=== PATIENT | male | born 1955 | race Caucasian/White ===

== ENCOUNTER 2020-02-29 17:52 | Inpatient (IN) | payer OTHER ==
[~2020-02-29] VITALS: Ht 175.3 cm; Wt 124.2 kg
[2020-02-29] MEDS ORDERED: dilTIAZem 25 MG/5 ML VIAL IV ONE (18:30)
[2020-02-29 18:48] LABS: Basophils # (auto) 0 10 ^3/uL (0-0.2); Basophils % (auto) 0.5 % (0.0-2.0); Eosinophils # (auto) 0 10 ^3/uL (0-0.8); Hematocrit 49.4 % (41.0-53.0); Hemoglobin 16.9 g/dL (13.5-17.5); Lymphocytes # (auto) 0.6 10 ^3/uL (0.4-5.4); Lymphocytes % (auto) 10.8 % (10.0-50.0); Mean Corpuscular Hemoglobin 31.2 pg (28.0-32.0); Mean Corpuscular Hgb Conc. 34.2 g/dL (32.0-36.0); Mean Corpuscular Volume 91.2 fL (80.0-100.0); Monocytes # (auto) 0.2 10 ^3/uL (0-1.3); Monocytes % (auto) 3.2 % (0.0-12.0); Neutrophils # (auto) 5.1 10 ^3/uL (1.6-8.6); Neutrophils % (auto) 85.5 % (37.0-80.0); Nucleated Red Blood Cells % 0.1 %; Platelet Count (auto) 139 10^3/uL (140-450); Red Blood Cells 5.42 10^6/uL (4.5-5.90); Red Cell Distribution Width 14.1 % (11.8-14.3)
[2020-02-29 19:09] LABS: BUN/Creatinine Ratio 22.3; Calcium 7.7 mg/dL (8.5-10.1); Magnesium 2.1 mg/dL (1.6-2.6); Potassium 3.1 mmol/L (3.5-5.1)
[2020-02-29 19:14] LABS: Bilirubin, Total 1.2 mg/dL (0.2-1.0); Total Protein 6.3 g/dL (6.4-8.2)
[2020-02-29] MEDS ORDERED: IOHEXOL 350 MG/ML 100ML IJ ONE (19:34)
[2020-02-29] MEDS ORDERED: POTASSIUM CHL 20MEQ/100ML 100 ML IV ONE (19:45)
[2020-02-29 20:15] VITALS: BP 109/57
[2020-02-29] MEDS ORDERED: ASCORBIC ACID 500 MG TAB PO ONE (20:30)
[2020-02-29] MEDS ORDERED: ZINC SULFATE 220mg CAP or TAB PO ONE (20:30)
[2020-02-29] MEDS ORDERED: AZITHROMYCIN 500MG/ 250ML 250 ML IV ONE (20:30)
[2020-02-29] MEDS ORDERED: SODIUM CHLORIDE 0.9% 500 ML IV ONE (21:15)
[2020-02-29 21:21] LABS: CRP High Sensitivity 9.27 mg/dL (< 0.3)
[2020-02-29] MEDS ORDERED: NITROGLYCERIN 0.4 MG SL TAB SL PRN (21:30)
[2020-02-29] MEDS ORDERED: FUROSEMIDE 40 MG/4 ML VIAL IV ONE (21:30)
[2020-02-29] MEDS ORDERED: MORPHINE SULF INJ 2 MG/ML SYRINGE 1ML IV PRN (21:30)
[2020-02-29] MEDS ORDERED: ENOXAPARIN SOD 40 MG/0.4 ML SYRINGE SC SCH (21:43)
[2020-02-29] MEDS ORDERED: DEXTROSE (50%) 50ML SYRG IV PRN (22:45)
[2020-02-29 22:50] VITALS: BP 99/44
[2020-02-29] MEDS: cefTRIAXone 1GM/50ML D5W 50 ML IV SCH (23:34)
[2020-03-01] VITALS (18 sets, daily range): BP systolic 88–141; BP diastolic 54–89
[2020-03-01] MEDS: InsuLIN REG 1unit/0.01ml Soln (100units/ml) SC SCH ×4 (05:57→22:00)
[2020-03-01] MEDS: ACCU-CHEK COMFORT CURVE STRIP VI SCH ×4 (05:57→22:28)
[2020-03-01 07:00] LABS: Potassium 3.2 mmol/L (3.5-5.1)
[2020-03-01 07:09] LABS: Albumin 2.1 g/dL (3.4-5.0); Calcium 8.1 mg/dL (8.5-10.1); Total Protein 6.4 g/dL (6.4-8.2)
[2020-03-01 07:18] LABS: Basophils # (auto) 0 10 ^3/uL (0-0.2); Basophils % (auto) 0.6 % (0.0-2.0); Eosinophils # (auto) 0 10 ^3/uL (0-0.8); Hematocrit 48.7 % (41.0-53.0); Hemoglobin 16.8 g/dL (13.5-17.5); Lymphocytes # (auto) 0.8 10 ^3/uL (0.4-5.4); Lymphocytes % (auto) 14.9 % (10.0-50.0); Mean Corpuscular Hemoglobin 31.8 pg (28.0-32.0); Mean Corpuscular Hgb Conc. 34.5 g/dL (32.0-36.0); Mean Corpuscular Volume 92.1 fL (80.0-100.0); Monocytes # (auto) 0.2 10 ^3/uL (0-1.3); Monocytes % (auto) 3.3 % (0.0-12.0); Neutrophils # (auto) 4.4 10 ^3/uL (1.6-8.6); Neutrophils % (auto) 81.2 % (37.0-80.0); Nucleated Red Blood Cells % 0.2 %; Platelet Count (auto) 162 10^3/uL (140-450); Red Blood Cells 5.29 10^6/uL (4.5-5.90); Red Cell Distribution Width 13.9 % (11.8-14.3); White Blood Cell 5.4 10^3/uL (4.4-10.8)
[2020-03-01] MEDS: SODIUM CHLORIDE 0.9% 1,000 ML IV SCH (08:24)
[2020-03-01] MEDS ORDERED: POTASSIUM CHL 20MEQ/100ML 100 ML IV ONE (10:15)
[2020-03-01] MEDS: DexAMETHasone SOD PHOS 4 MG/1ML SDV INJ IV SCH (12:04)
[2020-03-01] MEDS: cefTRIAXone 1GM/50ML D5W 50 ML IV SCH (12:05)
[2020-03-01] MEDS: AZITHROMYCIN 250 MG TAB PO SCH (12:05)
[2020-03-01] MEDS: ENOXAPARIN SOD 100 MG/1 ML SYRINGE SC SCH ×2 (12:06→22:28)
[2020-03-01] MEDS ORDERED: IPRATROPIUM BROM 0.5 MG/2.5ML INH SOL NEB SCH (14:00)
[2020-03-01] MEDS ORDERED: ALBUTEROL IN SCH (14:00)
[2020-03-01] MEDS ORDERED: ALBUTEROL SULF HFA 90MCG INH 200DOSE IN SCH (14:00)
[2020-03-01] MEDS ORDERED: IPRATROPIUM IN SCH (14:00)
[2020-03-01] MEDS: IPRATROPIUM-ALBUTEROL 20mCg/100mCg INHALER IN SCH ×2 (14:57→22:20)
[2020-03-01] MEDS ORDERED: DIGOXIN (250MCG/ML) 2 ML AMPULE IV ONE (16:00)
[2020-03-01 16:48] LABS: CRP High Sensitivity 10.7 mg/dL (< 0.3)
[2020-03-01 18:24] LABS: Calcium 8.4 mg/dL (8.5-10.1); Potassium 3.5 mmol/L (3.5-5.1)
[2020-03-01 18:29] LABS: BUN/Creatinine Ratio 34.6; Total Protein 6.6 g/dL (6.4-8.2)
--- NOTE | 2020-03-01 18:40 | NUR ---
Respiratory note: PT WAS TRANSFERRED FROM ER TO ICU BED 103. IMMEDIATELY PLACED PT ON HFNC UNIT AT 40LPM AND 60% FIO2 POX READING 90-93%, PT LEFT ON THESE TOLERATED SETTINGS. UNIT CONNECTED TO RED OUTLET O2 AND, MEDICAL AIR WALL SOURCE. KANG WATER ON HUSAM HEATER PLACED, SECURED AND ALL TUBING IS UNCLAMPED. AMBU BAG AND MASK AT BEDSIDE. PT TOLERATING WELL. BS ARE DIMINISHED T/O. PT IS ALERT AND ORIENTATED. WILL STAY IN ROOM TO OBTAIN ABG.
[2020-03-01 18:50] LABS: Albumin 4.1 g/dL (3.4-5.0)
--- NOTE | 2020-03-01 19:09 | NUR ---
Respiratory note: PAGED DR. Chau FRIAS REGARDING ABG RESULTS.
--- NOTE | 2020-03-01 19:37 | NUR ---
RECEIVED CALL BACK FROM DR Smiley OSORIO. UPDATED ON ABG RESULTS. PT IS TO BE LEFT ON HFNC TOLERATED NO NEW ORDERS GIVEN AT THIS TIME.
--- NOTE | 2020-03-01 20:00 | NUR ---
OPEN ASSUMED CARE OF MALE PT A&O X 4. PT ON HI FLOW O2 CANNULA 60% FIO2 40 L. PT AFIB RATE 92 ON VESSEL ORDINARY SEAMAN. 18 G IV TO L. HAND WITH NS INFUSING AT 50 ML/HR SITE B&P. PT DENIES PAIN. SOB WITH EXERTION. HOB ELEVATED 45 DEGREES FOR PT COMFORT. CALL ABEL IN REACH. PORTABLE PHONE AT BEDSIDE. BED IN LOWEST LOCKED POSITION. SIDE RAILS UP X 2. PT EDUCATED TO KEEP OXYGEN ON. EDUCATED TO CALL FOR ASSISTANCE PRIOR TO ATTEMPTING TO AMBULATE. PT VERBALIZES UNDERSTANDING.
--- NOTE | 2020-03-01 20:15 | NUR ---
SIGNIFICANT OTHER CALL WITH PT PERMISSION PT'S GIRLFRIEND UPDATED ON PT CONDITION. PASSWORD FOR PHONE ESTABLISHED.
[2020-03-02] VITALS (23 sets, daily range): BP systolic 101–147; BP diastolic 55–91
--- NOTE | 2020-03-02 02:41 | NUR ---
Respiratory note: AT BEDSIDE FOR ROUTINE CHECK. SETTINGS HAD TO BE INCREASED ON HFNC, DUE PTS POX MAINTAINING IN 80S. PTS IS NOW ON 45LPM WITH 70% FIO2. WILL CONTINUE TO MONITOR. YAEL BARNARD COMMUNICATED ON SETTINGS.
[2020-03-02] MEDS: SODIUM CHLORIDE 0.9% 1,000 ML IV SCH (03:30)
[2020-03-02 04:54] LABS: Basophils # (auto) 0 10 ^3/uL (0-0.2); Basophils % (auto) 1.1 % (0.0-2.0); Eosinophils # (auto) 0 10 ^3/uL (0-0.8); Hematocrit 49.4 % (41.0-53.0); Hemoglobin 16.3 g/dL (13.5-17.5); Lymphocytes # (auto) 0.4 10 ^3/uL (0.4-5.4); Lymphocytes % (auto) 9.7 % (10.0-50.0); Mean Corpuscular Hemoglobin 30.7 pg (28.0-32.0); Mean Corpuscular Hgb Conc. 33.1 g/dL (32.0-36.0); Mean Corpuscular Volume 92.6 fL (80.0-100.0); Monocytes # (auto) 0.3 10 ^3/uL (0-1.3); Monocytes % (auto) 6.5 % (0.0-12.0); Neutrophils # (auto) 3.3 10 ^3/uL (1.6-8.6); Neutrophils % (auto) 82.7 % (37.0-80.0); Nucleated Red Blood Cells % 0.1 %; Platelet Count (auto) 199 10^3/uL (140-450); Red Blood Cells 5.33 10^6/uL (4.5-5.90); Red Cell Distribution Width 14.3 % (11.8-14.3)
[2020-03-02 04:56] LABS: Potassium 3.6 mmol/L (3.5-5.1)
[2020-03-02 05:03] LABS: Albumin 1.9 g/dL (3.4-5.0); BUN/Creatinine Ratio 35.2; Bilirubin, Total 0.8 mg/dL (0.2-1.0); Calcium 8.3 mg/dL (8.5-10.1); Total Protein 6.3 g/dL (6.4-8.2)
[2020-03-02] MEDS ORDERED: METO25TA5 PO (06:10)
[2020-03-02] MEDS ORDERED: DIGO0.25 PO (06:10)
[2020-03-02] MEDS: ACCU-CHEK COMFORT CURVE STRIP VI SCH ×4 (06:19→22:20)
[2020-03-02] MEDS: InsuLIN REG 1unit/0.01ml Soln (100units/ml) SC SCH ×4 (06:19→22:22)
[2020-03-02] MEDS: IPRATROPIUM-ALBUTEROL 20mCg/100mCg INHALER IN SCH ×3 (06:50→23:22)
--- NOTE | 2020-03-02 07:50 | NUR ---
DR AJ AT BEDSIDE RECEIVED NEW ORDERS
--- NOTE | 2020-03-02 09:00 | NUR ---
SELF PRONING PT EDUCATED ON THE BENEFITS OF SELF PRONING. PT VERBALIZED UNDERSTANDING. UNABLE TO PERFORM AT THIS TIME. RN WILL CONTINUE TO ENCOURAGE.
--- NOTE | 2020-03-02 09:30 | NUR ---
DR FRIAS AT BEDSIDE DISCUSSED PT STATUS, NEW ORDERS RECEIVED
[2020-03-02] MEDS: cefTRIAXone 1GM/50ML D5W 50 ML IV SCH (10:00)
--- NOTE | 2020-03-02 11:30 | NUR ---
DR EMMANUEL AT BEDSIDE
[2020-03-02] MEDS ORDERED: ACETAMINOPHEN 650 mg PER 20 mL UD PO ONE (12:00)
[2020-03-02] MEDS: AZITHROMYCIN 250 MG TAB PO SCH (12:00)
[2020-03-02] MEDS ORDERED: methylPREDNISolone SOD SUCC 40 MG/ML VL IV ONE (12:00)
[2020-03-02] MEDS: DexAMETHasone SOD PHOS 4 MG/1ML SDV INJ IV SCH (12:00)
[2020-03-02] MEDS: DIGOXIN 0.125 MG TAB PO SCH (12:01)
[2020-03-02] MEDS: METOPROLOL TARTRATE 25 MG TAB PO SCH ×2 (12:01→22:19)
[2020-03-02] MEDS: ENOXAPARIN SOD 100 MG/1 ML SYRINGE SC SCH ×2 (12:01→22:20)
[2020-03-02] MEDS: diphenhdrAMINE HCL 50 MG/1 ML VL IV SCH (12:17)
[2020-03-02] MEDS ORDERED: TOCILIZUMAB 400 MG in SODIUM CHL 0.9% 80 ML IV ONE (12:30)
--- NOTE | 2020-03-02 16:35 | NUR ---
REPORT GIVEN TO PATRICE FROM [facility] ALL QUESTIONS AND CONCERNS ANSWERED. AWAITING RT, EVS, AND SECURITY FOR TRANSPORT.
--- NOTE | 2020-03-02 16:40 | NUR ---
BRAD [facility] PLASMA CONSENT SIGNED AND PLACED IN CHART. AWAITING TYPE AND CROSS RESULTS. PATRICE CONLEY INFORMED TO CALL ADMIN FOR SPECIALTY ORDERING OF PLASMA.
--- NOTE | 2020-03-02 16:50 | NUR ---
TRANSPORTED PT TO NEW BED ASSIGNMENT [facility] RECEIVING RN AT BEDSIDE UPON ARRIVAL, PT CONNECTED TO BEDSIDE MONITORS. RT CONNECTED TO HIGH FLOW O2. TRANSFERRED WITH ALL BELONGINGS, VS STABLE.
--- NOTE | 2020-03-02 17:00 | NUR ---
TRANSFER Patient transferred from ICU 103 to [facility] via bed. Patient received and placed in Novel Respiratory isolation. Vitals signs on transfer as follows: HR 76 Afib, BP 131/85, RR 27, O2sats 93% on High Flow 45L 70%, and temp 98.4 axillary. Patient with PIV to left hand #20 and is intact and flushes well. Patient to have IVF of NS running at 50ml/hr. Patient is A&Ox4, denies pain and has no s/s of distress noted. Bed in lowest position, rails x2 up and call light/phone within reach. Updated patient on current plan of care. Patient to receive convalescent plasma this evening once Type and Screen returns. Will continue to monitor.
--- NOTE | 2020-03-02 19:01 | NUR ---
CLOSING SHIFT NOTE: Patient sitting up in the bed finishing dinner. Patient remains on isolation for COVID-19. Patient still on high flow oxygen at 45L 70% and O2 sats 90%. Patient to receive convalescent plasma tonight, consent signed in chart. Plasma still needs to be released by house shift coordinator, will endorse to oncoming RN. Patient able to get out of bed to BSC with minimal assist and urinal at bedside. Report to be given to NOC RNFelecia.
--- NOTE | 2020-03-02 20:00 | NUR ---
OPENING NOTE REPORT RECEIVED FROM DAYSHIFT RN. THIS PATIENT IS A POSITIVE COVID PATIENT, ON NOVEL RESPIRATORY ISOLATION. PATIENT IS A/OX4 ON CONTINUOUS MONITORS, HEART RATE IN AFIB IN 70-80'S, SPO2 BETWEEN 88-91% ON HIGH FLOW NASAL CANNULA AT 45L, FIO2 70%. PHYSICAL ASSESSMENT DONE. PATIENT ABLE TO MOVE ALL EXTREMITIES AND REPOSITION SELF IN BED WITHOUT DIFFICULTY. POC DISCUSSED, ALL QUESTIONS ANSWERED. WILL MONITOR Q1H PRN THROUGHOUT SHIFT, CALL LIGHT WITHIN REACH.
--- NOTE | 2020-03-02 20:55 | NUR ---
CONVALESCENT PLASMA CALLED AND SPOKE WITH DR.SIDDIQUI RAFAELA FIERRO ON LABS, PATIENT HISTORY AND REQUESTING PROVIDER. ORDER APPROVED. INSTRUCTED THIS RN TO NOTIFY CLOTH COVERER TO PLACE ORDER FOR 1 UNIT CONVALESCENT PLASMA AND TO INITIATE PROCESS.
--- NOTE | 2020-03-02 21:04 | NUR ---
TACTICAL AIR CONTROL PARTY MANAGER SPOKE WITH TACTICAL AIR CONTROL PARTY MANAGER JENIFER. NOTIFIED HIM OF 'S APPROVAL FOR 1 UNIT CONVALESCENT PLASMA. [place] SUP TO INITIATE PROCESS
[2020-03-03] VITALS (13 sets, daily range): BP systolic 112–139; BP diastolic 61–78
[2020-03-03] MEDS: SODIUM CHLORIDE 0.9% 1,000 ML IV SCH (00:07)
[2020-03-03] MEDS: diphenhdrAMINE HCL 50 MG/1 ML VL IV SCH ×3 (00:22→12:26)
[2020-03-03 04:18] LABS: CRP High Sensitivity 3.41 mg/dL (< 0.3)
--- NOTE | 2020-03-03 06:10 | NUR ---
PRE MEDICATIONS FOR ACTEMRA GIVEN ORDERED BY
[2020-03-03] MEDS: ACCU-CHEK COMFORT CURVE STRIP VI SCH ×4 (06:20→22:23)
[2020-03-03] MEDS: InsuLIN REG 1unit/0.01ml Soln (100units/ml) SC SCH ×4 (06:20→22:00)
[2020-03-03] MEDS ORDERED: methylPREDNISolone SOD SUCC 40 MG/ML VL IV ONE (06:30)
[2020-03-03] MEDS: IPRATROPIUM-ALBUTEROL 20mCg/100mCg INHALER IN SCH ×3 (06:30→22:29)
[2020-03-03] MEDS ORDERED: diphenhdrAMINE HCL 50 MG/1 ML VL IV ONE (06:30)
[2020-03-03] MEDS ORDERED: ACETAMINOPHEN 650 mg PER 20 mL UD PO ONE (06:30)
[2020-03-03] MEDS ORDERED: TOCILIZUMAB 400 MG in SODIUM CHL 0.9% 80 ML IV ONE (07:00)
--- NOTE | 2020-03-03 07:35 | NUR ---
REPORT REPORT RECEIVED FROM DEVIN CONLEY, CARE ASSUMED. PT RESTING IN BED, NO DISTRESS NOTED AT THIS TIME. VITALS SIGNS STABLE. CALL LIGHT WITHIN REACH.
--- NOTE | 2020-03-03 07:44 | NUR ---
CLOSING PATIENT SITTING UP IN BED, RESTING WITH EYES CLOSED. PATIENT ON HIGH FLOW NASAL CANNULA 45L, FIO2 70%, WITH SPO2 96%. PER PUBLISHING EDITOR JENIFER, WE ARE PENDING TO HEAR BACK FROM [place] REGARDING CONVALESCENT PLASMA. ENDORSED CARE TO AM SHIFT YAEL TELLEZ.
--- NOTE | 2020-03-03 08:30 | NUR ---
INITIAL CONTACT PT OBSERVED RESTING IN BED. PT IS AWAKE, ALERT, AND ORIENTED. PT DENIES PAIN OR DISTRESS AT THIS TIME. AFEBRILE. PT ABLE TO REPOSITION SELF IN BED. PULSES PALPABLE BILATERALLY. ATRIAL FIBRILLATION ON BEDSIDE MONITOR, BLOOD PRESSURE STABLE. LUNGS DIMINISHED ANTERIORLY. PT ON HIGH FLOW, OXYGEN SATURATION 93%, DENIES SHORTNESS OF BREATH AT THIS TIME. SEE SKIN/WOUND ASSESSMENT. PT VOIDS IN URINAL. ALL PERSONAL BELONGINGS WITHIN REACH, BED LOCKED IN LOWEST POSITION, AND CALL LIGHT WITHIN REACH. PT INSTRUCTED TO CALL FOR ASSISTANCE, PT VERBALIZED UNDERSTANDING. WILL CONTINUE TO MONITOR.
[2020-03-03] MEDS: ENOXAPARIN SOD 100 MG/1 ML SYRINGE SC SCH ×2 (09:30→22:22)
[2020-03-03] MEDS: AZITHROMYCIN 250 MG TAB PO SCH (09:30)
[2020-03-03] MEDS: DIGOXIN 0.125 MG TAB PO SCH (09:30)
[2020-03-03] MEDS: cefTRIAXone 1GM/50ML D5W 50 ML IV SCH (09:30)
[2020-03-03] MEDS: METOPROLOL TARTRATE 25 MG TAB PO SCH ×2 (09:31→22:23)
--- NOTE | 2020-03-03 11:21 | NUR ---
MD VISIT AT BEDSIDE ASSESSING PATIENT AND SPEAKING WITH HIM REGARDING PLAN OF CARE.
[2020-03-03] MEDS ORDERED: FUROSEMIDE 40 MG/4 ML VIAL IV ONE (11:30)
--- NOTE | 2020-03-03 12:00 | NUR ---
FAMILY PT SISTER CALLED FOR UPDATE. PROVIDED CONTACT INFORMATION. CALL TRANSFERRED TO ROOM.
[2020-03-03] MEDS: ALBUMIN 25% 100 ML IV SCH (12:20)
[2020-03-03] MEDS: DexAMETHasone SOD PHOS 4 MG/1ML SDV INJ IV SCH (12:20)
--- NOTE | 2020-03-03 18:15 | NUR ---
BLOOD PRODUCTS ONE UNIT OF DONOR PLASMA ADMINISTRATION BEGUN. CONSENTS IN CHART. VITALS OBTAINED. NO REACTIONS NOTED AT THIS TIME.
[2020-03-04] VITALS (12 sets, daily range): BP systolic 117–144; BP diastolic 46–117
[2020-03-04] MEDS: diphenhdrAMINE HCL 50 MG/1 ML VL IV SCH
[2020-03-04 04:38] LABS: Basophils # (auto) 0 10 ^3/uL (0-0.2); Basophils % (auto) 0.2 % (0.0-2.0); Eosinophils # (auto) 0 10 ^3/uL (0-0.8); Eosinophils % (auto) 0.1 % (0.0-7.0); Hematocrit 46.8 % (41.0-53.0); Hemoglobin 15.4 g/dL (13.5-17.5); Lymphocytes # (auto) 0.4 10 ^3/uL (0.4-5.4); Mean Corpuscular Hgb Conc. 32.9 g/dL (32.0-36.0); Monocytes # (auto) 0.3 10 ^3/uL (0-1.3); Monocytes % (auto) 6.7 % (0.0-12.0); Neutrophils # (auto) 4.1 10 ^3/uL (1.6-8.6); Platelet Count (auto) 276 10^3/uL (140-450); Red Blood Cells 4.98 10^6/uL (4.5-5.90); Red Cell Distribution Width 13.9 % (11.8-14.3); White Blood Cell 4.9 10^3/uL (4.4-10.8)
[2020-03-04 04:59] LABS: Potassium 3.5 mmol/L (3.5-5.1)
[2020-03-04 05:08] LABS: Albumin 2.3 g/dL (3.4-5.0); BUN/Creatinine Ratio 36.7; Bilirubin, Total 0.7 mg/dL (0.2-1.0); Calcium 8.2 mg/dL (8.5-10.1)
[2020-03-04] MEDS: IPRATROPIUM-ALBUTEROL 20mCg/100mCg INHALER IN SCH ×3 (06:15→22:06)
[2020-03-04] MEDS: InsuLIN REG 1unit/0.01ml Soln (100units/ml) SC SCH ×4 (07:00→22:00)
[2020-03-04] MEDS: ACCU-CHEK COMFORT CURVE STRIP VI SCH ×4 (07:00→22:00)
[2020-03-04] MEDS: cefTRIAXone 1GM/50ML D5W 50 ML IV SCH (08:25)
[2020-03-04] MEDS: DIGOXIN 0.125 MG TAB PO SCH (10:00)
[2020-03-04] MEDS: ALBUMIN 25% 100 ML IV SCH (10:00)
[2020-03-04] MEDS: DexAMETHasone SOD PHOS 4 MG/1ML SDV INJ IV SCH (11:32)
[2020-03-04] MEDS: AZITHROMYCIN 250 MG TAB PO SCH (11:33)
[2020-03-04] MEDS: METOPROLOL TARTRATE 25 MG TAB PO SCH ×2 (11:33→22:00)
[2020-03-04] MEDS: ENOXAPARIN SOD 100 MG/1 ML SYRINGE SC SCH ×2 (11:34→22:59)
--- NOTE | 2020-03-04 15:01 | NUR ---
Nutrition Assessment Notes Please refer to link for full assessment notes. Est Energy needs: 3276-1643 kcals (17-20 kcal/kgBW) Est Protein needs: 103-113 gms/day (1.0-1.1 gm/kgBW) Will continue to monitor and reassess prn. Addendum: 03/04/20 at [address] Amended: Links added.
[2020-03-04] MEDS ORDERED: BUMETANIDE 2.5mg/10ml (0.25 mg/ml) INJ IV SCH (18:00)
[2020-03-04] MEDS: BUMETANIDE 2.5mg/10ml (0.25 mg/ml) INJ IV SCH (22:59)
[2020-03-05] VITALS (10 sets, daily range): BP systolic 98–114; BP diastolic 75–82
[2020-03-05] MEDS: InsuLIN REG 1unit/0.01ml Soln (100units/ml) SC SCH ×4 (07:00→22:00)
[2020-03-05] MEDS: IPRATROPIUM-ALBUTEROL 20mCg/100mCg INHALER IN SCH ×3 (07:00→22:00)
[2020-03-05] MEDS: ACCU-CHEK COMFORT CURVE STRIP VI SCH ×4 (07:00→22:00)
[2020-03-05] MEDS: METOPROLOL TARTRATE 25 MG TAB PO SCH ×2 (08:56→22:00)
[2020-03-05] MEDS: DIGOXIN 0.125 MG TAB PO SCH (09:29)
[2020-03-05] MEDS: DexAMETHasone SOD PHOS 4 MG/1ML SDV INJ IV SCH (09:29)
[2020-03-05] MEDS: cefTRIAXone 1GM/50ML D5W 50 ML IV SCH (09:29)
[2020-03-05] MEDS: BUMETANIDE 2.5mg/10ml (0.25 mg/ml) INJ IV SCH (09:29)
[2020-03-05] MEDS: ENOXAPARIN SOD 100 MG/1 ML SYRINGE SC SCH ×2 (09:30→22:18)
[2020-03-05] MEDS: AZITHROMYCIN 250 MG TAB PO SCH (09:30)
[2020-03-05] MEDS: ALBUMIN 25% 100 ML IV SCH (10:05)
--- NOTE | 2020-03-05 11:06 | NUR ---
MD IN UNIT LIEN IN UNIT, NEW ORDERS, DID NOT WALK INTO PT ROOM OR SPEAK WITH PT.
--- NOTE | 2020-03-05 14:04 | NUR ---
TITRATED FIO2 TO 85%. CHANGED HEATER KANG WITHOUT INCIDENT. PT TOLERATING CHANGES WELL. COMBIVENT MEDICATION ADMINISTERED VIA MDI WITH CHAMBER, NO ADVERSE REACTIONS NOTED. PT AWAKE AND ALERT, SITTING UP IN HIGH FOWLERS PREPARING TO EAT LUNCH. NO S/S OF DISTRESS NOTED. WILL ENDORSE PT CARE TO ONCOMING RT.
--- NOTE | 2020-03-05 19:01 | NUR ---
RT NOTE routine hfnc check. water level adequate. cont as ordered Addendum: 03/05/20 at 1933 by Julienne Emery RT Amended: Links added.
--- NOTE | 2020-03-05 22:38 | NUR ---
RT NOTE HCNC CHECK DONE. WATER LEVEL IS ADEQUATE. NO CHANGES MADE. MDI COMBIVENT GIVEN BY YAEL BEST Addendum: 03/05/20 at 2241 by Julienne Emery RT Amended: Links added.
[2020-03-06] VITALS (12 sets, daily range): BP systolic 96–150; BP diastolic 66–84
--- NOTE | 2020-03-06 02:26 | NUR ---
RT NOTE ROUTINE HFNC CHECK DONE. WATER LEVEL ADEQUATE. PT IS AWAKE AND REQUESTING BIPAP BE REMOVED FROM ROOM AND ALSO WANTS JELLO AND JUICE. BIPAP REMOVED PER PT REQUEST. SUGAR FREE JELLO PROVIDED. CONT ORDERED Addendum: 03/06/20 at 0310 by Julienne Emery RT Amended: Links added.
[2020-03-06 04:37] LABS: Basophils # (auto) 0 10 ^3/uL (0-0.2); Basophils % (auto) 0.7 % (0.0-2.0); Eosinophils # (auto) 0 10 ^3/uL (0-0.8); Eosinophils % (auto) 0.7 % (0.0-7.0); Hematocrit 49.7 % (41.0-53.0); Hemoglobin 16.6 g/dL (13.5-17.5); Lymphocytes # (auto) 0.6 10 ^3/uL (0.4-5.4); Lymphocytes % (auto) 13.9 % (10.0-50.0); Mean Corpuscular Hemoglobin 31.4 pg (28.0-32.0); Mean Corpuscular Hgb Conc. 33.5 g/dL (32.0-36.0); Mean Corpuscular Volume 93.9 fL (80.0-100.0); Monocytes # (auto) 0.2 10 ^3/uL (0-1.3); Monocytes % (auto) 5.6 % (0.0-12.0); Neutrophils # (auto) 3.5 10 ^3/uL (1.6-8.6); Neutrophils % (auto) 79.1 % (37.0-80.0); Nucleated Red Blood Cells % 0.1 %; Platelet Count (auto) 302 10^3/uL (140-450); Red Blood Cells 5.29 10^6/uL (4.5-5.90); Red Cell Distribution Width 14.2 % (11.8-14.3); White Blood Cell 4.4 10^3/uL (4.4-10.8)
[2020-03-06 05:00] LABS: Potassium 3.8 mmol/L (3.5-5.1)
[2020-03-06 05:08] LABS: BUN/Creatinine Ratio 38.3; Calcium 8.4 mg/dL (8.5-10.1)
[2020-03-06] MEDS: IPRATROPIUM-ALBUTEROL 20mCg/100mCg INHALER IN SCH ×3 (05:55→21:58)
[2020-03-06] MEDS: ACCU-CHEK COMFORT CURVE STRIP VI SCH ×4 (06:08→22:19)
[2020-03-06] MEDS: InsuLIN REG 1unit/0.01ml Soln (100units/ml) SC SCH ×4 (06:08→22:00)
--- NOTE | 2020-03-06 07:45 | NUR ---
OPENING SHIFT NOTE: Received report from NOC RNBabs. Assumed care of patient. Patient received resting in bed and connected to bedside monitor with alarms in place. Patient is currently in Novel Respiratory Isolation for COVID-19. Patient is A&Ox4 and denies pain. Patient with no s/s of distress noted. Patient currently on high flow oxygen at 50L 85% with O2 sats 90-93%. Patient with PIV to left hand #18 that is saline locked and flushes well. Patient is using urinal and BSC with minimal standby assist. Bed in lowest position, rails x2 up and call light within reach. Updated on plan of care. Will continue to monitor q1hr/PRN.
--- NOTE | 2020-03-06 07:53 | NUR ---
Pt remained stable this shift. No S/S of distress. Tolerated Hi Flow well. Report given to am shift, care endorsed.
--- NOTE | 2020-03-06 10:00 | NUR ---
MEDICATIONS 1000 medications administered to patient. Five rights verified. Patient verbalized understanding of medications. Patient tolerated all medications without any difficulties.
[2020-03-06] MEDS: BUMETANIDE 2.5mg/10ml (0.25 mg/ml) INJ IV SCH (10:32)
[2020-03-06] MEDS: DexAMETHasone SOD PHOS 4 MG/1ML SDV INJ IV SCH (10:33)
[2020-03-06] MEDS: cefTRIAXone 1GM/50ML D5W 50 ML IV SCH (10:33)
[2020-03-06] MEDS: DIGOXIN 0.125 MG TAB PO SCH (10:33)
[2020-03-06] MEDS: METOPROLOL TARTRATE 25 MG TAB PO SCH ×2 (10:34→22:00)
[2020-03-06] MEDS: AZITHROMYCIN 250 MG TAB PO SCH (10:34)
[2020-03-06] MEDS: ENOXAPARIN SOD 100 MG/1 ML SYRINGE SC SCH ×2 (10:35→22:19)
[2020-03-06] MEDS: ALBUMIN 25% 100 ML IV SCH (10:35)
--- NOTE | 2020-03-06 19:00 | NUR ---
CLOSING SHIFT NOTE: Patient sitting up in the bed with no s/s of distress. Patient remains on isolation for COVID-19. Patient still on high flow oxygen at 55L 85% and O2 sats 92%. Report to be given to Geovanna GRAJEDA RN. Addendum: 03/06/20 at 1934 by LORENZO SHEPPARD RN Correction: Report given to YAEL Garrido.
--- NOTE | 2020-03-06 19:30 | NUR ---
OPENING SHIFT RECEIVED REPORT FROM DAY SHIFT RN. ASSUMED CARE OF PATIENT. PATIENT IN BED WATCHING TV WITH NO SIGNS OR SYMPTOMS OF SOB, PAIN OR DISTRESS. CURRENTLY ON HIGH FLOW NASAL CANNULA 55L / FI02 80%, 02 SAT - 90%. LEFT HAND IV - CLEAN/DRY/INTACT. UPDATED PATIENT ON PLAN OF CARE. REPOSITIONED FOR COMFORT. BED IN LOWEST POSITION, SIDE RAILS UP X2. CALL LIGHT WITHIN REACH. WILL CONTINUE TO MONITOR.
--- NOTE | 2020-03-06 23:34 | NUR ---
PAGED DR. AJ, AWAITING CALL BACK.
[2020-03-07] VITALS (13 sets, daily range): BP systolic 125–166; BP diastolic 5–95
--- NOTE | 2020-03-07 00:40 | NUR ---
SPOKE WITH DR. AJ MADE AWARE OF THE 1 - 2 SECOND PAUSES IN PATIENTS HEART RATE WITH THE LOWEST HEART RATE BEING AT 36 AFIB. PATIENT ASYMPTOMATIC. RECEIVED ORDERS TO GIVE ATROPINE IF NEEDED AND DOPAMINE IF NEEDED. TORB. WILL CONTINUE TO MONITOR.
[2020-03-07 04:00] LABS: Basophils # (auto) 0 10 ^3/uL (0-0.2); Basophils % (auto) 0.4 % (0.0-2.0); Eosinophils # (auto) 0.1 10 ^3/uL (0-0.8); Eosinophils % (auto) 1.4 % (0.0-7.0); Hematocrit 47.5 % (41.0-53.0); Hemoglobin 15.7 g/dL (13.5-17.5); Lymphocytes # (auto) 1.1 10 ^3/uL (0.4-5.4); Lymphocytes % (auto) 23.3 % (10.0-50.0); Mean Corpuscular Hemoglobin 30.9 pg (28.0-32.0); Mean Corpuscular Volume 93.4 fL (80.0-100.0); Monocytes # (auto) 0.2 10 ^3/uL (0-1.3); Monocytes % (auto) 4.8 % (0.0-12.0); Neutrophils # (auto) 3.4 10 ^3/uL (1.6-8.6); Neutrophils % (auto) 70.1 % (37.0-80.0); Nucleated Red Blood Cells % 0.1 %; Platelet Count (auto) 302 10^3/uL (140-450); Red Blood Cells 5.09 10^6/uL (4.5-5.90); Red Cell Distribution Width 14.2 % (11.8-14.3); White Blood Cell 4.8 10^3/uL (4.4-10.8)
[2020-03-07 04:16] LABS: Albumin 2.9 g/dL (3.4-5.0); Calcium 8.4 mg/dL (8.5-10.1); Potassium 3.5 mmol/L (3.5-5.1)
[2020-03-07 04:20] LABS: Bilirubin, Total 0.7 mg/dL (0.2-1.0)
[2020-03-07] MEDS: IPRATROPIUM-ALBUTEROL 20mCg/100mCg INHALER IN SCH ×3 (06:12→22:00)
[2020-03-07] MEDS: ACCU-CHEK COMFORT CURVE STRIP VI SCH ×4 (06:44→22:00)
[2020-03-07] MEDS: InsuLIN REG 1unit/0.01ml Soln (100units/ml) SC SCH ×4 (06:44→22:00)
--- NOTE | 2020-03-07 07:31 | NUR ---
END OF SHIFT REPORT GIVEN TO DAY SHIFT RN. CARE ENDORSED.
--- NOTE | 2020-03-07 07:35 | NUR ---
REPORT REPORT RECEIVED FROM ORTIZ RN, CARE ASSUMED. PT RESTING IN BED WATCHING TV. NO DISTRESS NOTED.
--- NOTE | 2020-03-07 07:55 | NUR ---
INITIAL CONTACT PT OBSERVED RESTING IN BED WITH CALL LIGHT WITHIN REACH. NO DISTRESS NOTED AT THIS TIME. AFEBRILE. PATIENT IS ALERT AND ORIENTED. ABLE TO REPOSITION SELF. DENIES PAIN. CONTROLLED ATRIAL FIBRILLATION NOTED ON BEDSIDE MONITOR, BLOOD PRESSURE STABLE. PULSES PALPABLE BILATERAL RADIAL AND PEDAL. PITTING EDEMA NOTED ON BILATERAL LOWER EXTREMITIES. LUNGS DIMINISHED ANTERIORLY, OXYGEN SATURATION 92% ON HIGH FLOW NASAL CANNULA. DENIES SHORTNESS OF BREATH. PT USES URINAL. SKIN INTACT. PT ENCOURAGED TO REPOSITION FREQUENTLY. BED LOCKED IN LOWEST POSITION, ALARMS IN PLACE, WILL CONTINUE TO MONITOR.
[2020-03-07] MEDS: DIGOXIN 0.125 MG TAB PO SCH ×2 (10:00→12:18)
[2020-03-07] MEDS: cefTRIAXone 1GM/50ML D5W 50 ML IV SCH (10:00)
[2020-03-07] MEDS: BUMETANIDE 2.5mg/10ml (0.25 mg/ml) INJ IV SCH (10:49)
[2020-03-07] MEDS: ENOXAPARIN SOD 100 MG/1 ML SYRINGE SC SCH ×2 (10:49→22:00)
[2020-03-07] MEDS: DexAMETHasone SOD PHOS 4 MG/1ML SDV INJ IV SCH (10:50)
[2020-03-07] MEDS: AZITHROMYCIN 250 MG TAB PO SCH (10:50)
[2020-03-07] MEDS: ALBUMIN 25% 100 ML IV SCH (10:51)
--- NOTE | 2020-03-07 11:30 | NUR ---
COVID SWAB NEW COVID SWAB OBTAINED AND SENT TO LAB.
[2020-03-07] MEDS: METOPROLOL TARTRATE 25 MG TAB PO SCH ×2 (11:47→22:00)
--- NOTE | 2020-03-07 12:45 | NUR ---
MD VISIT DR.MISELATTI DANIEL. MD AWARE OF OXYGENATION STATUS AND BRADYCARDIA THIS MORNING. NO NEW ORDERS RECEIVED AT THIS TIME.
--- NOTE | 2020-03-07 12:53 | NUR ---
Nutrition Followup Notes Wt: 135.8 kg Pt`s COVID +ve in isolation unable to talk to pt. pt is currently on CCHO 45 gm diet with adequate PO of 75% x 4 per RN doc. pt with no distress noted Est Energy needs: 6187-2460 kcals (17-20 kcal/kgBW), Est Protein needs: 103-113 gms/day (1.0-1.1 gm/kgBW). Will continue to monitor and reassess prn. LABS: BUN 34 H, CA 8.4 L, ALB 2.9 L GI: Pt has no BM reported per RN doc BS: 17, mod risk. Refer to wound assessment report for full details. PES: 1) Altered nutrition related lab values aeb hyperglycemia, hypocalcemia, severe hypoalbuminemia r/t current medical condition 2) Obesity aeb 142% IBW and BMI of 33.5 kg/m2 r/t energy intake in excess of energy needs Rec: 1) 1) Continue to closely monitor pt PO intake to meet at least 75% of meals. 2) Suggest a CCHO 60g diet. 3) If albumin continues trending down consider Prostat 1 pkt BID. 4) Continue current plan of care
--- NOTE | 2020-03-07 13:54 | NUR ---
CARES PT SITTING ON EDGE OF BED PERFORMING BED BATH ON SELF. NO DISTRESS NOTED, VITAL SIGN REMAINING STABLE DURING ACTIVITY. CALL LIGHT AND PERSONAL BELONGINGS WITHIN REACH. WILL CONTINUE TO MONITOR.
--- NOTE | 2020-03-07 16:26 | NUR ---
ASSESSMENT CONE MACHINE FEEDER SPOKE WITH PT PER INITIAL ASSESSMENT. PT IS A 64 YR OLD MALE ADMITTED FOR COVID. HE HAS A HX OF HTN, AFIB, HTN. PT WAS A/A/OX4, RECEPTIVE TO SS VISIT, EUTHYMIC MOOD WITH CONGRUENT AFFECT. PT STATES HE WAS INDEPENDENT WITH ADL'S PRIOR TO ADMISSION. NO DME. PT'S PCP IS DR. Isabel GIL. HE DOES NOT HAVE AHCD/POA HE PLANS TO COMPLETE ONE UPON DC. PT RESIDES WITH HIS ROOM MATE YAMINI [phone]. HE ALSO LIST HIS FRIEND TOMMY WHO IS AN RN HIS EMERGENCY DECISION MAKER. PT DOES NOT HAVE CHILDREN. PLAN IS FOR PT TO DC HOME WITH HOME HEALTH NEEDED. SS TO CONTINUE TO MONITOR PT FOR HOME HEALTH NEEDS. Addendum: 03/07/20 at 1630 by LEONELA BARBER SS Amended: Links added.
--- NOTE | 2020-03-07 18:00 | NUR ---
EDUCATION PT EDUCATED ON IMPORTANCE OF REPOSITIONING AND PRONING POSITION TO ALLOW FOR OPTIMAL OXYGENATION. PATIENT VERBALIZED UNDERSTANDING. 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 PT VERBALIZED UNDERSTANDING.
--- NOTE | 2020-03-07 19:10 | NUR ---
OPENING SHIFT RECEIVED REPORT FROM DAY SHIFT RN. ASSUMED CARE OF PATIENT. PATIENT IN BED WATCHING TV WITH NO SIGNS OR SYMPTOMS OF SOB, PAIN OR DISTRESS. CURRENTLY ON HIGH FLOW NASAL CANNULA 45L / 80% FI02, 02 SAT - 94%. LEFT HAND IV - CLEAN/DRY/INTACT. UPDATED PATIENT ON PLAN OF CARE. REPOSITIONED FOR COMFORT. BED IN LOWEST POSITION, SIDE RAILS UPX2, CALL LIGHT WITHIN REACH. WILL CONTINUE TO MONITOR.
--- NOTE | 2020-03-07 19:15 | NUR ---
REPORT REPORT GIVEN TO ORTIZ CONLEY, CARE ENDORSED.
[2020-03-08] VITALS (11 sets, daily range): BP systolic 92–118; BP diastolic 59–89
[2020-03-08 04:09] LABS: Basophils # (auto) 0 10 ^3/uL (0-0.2); Basophils % (auto) 0.2 % (0.0-2.0); Eosinophils # (auto) 0.1 10 ^3/uL (0-0.8); Eosinophils % (auto) 1.4 % (0.0-7.0); Hematocrit 51.1 % (41.0-53.0); Hemoglobin 16.8 g/dL (13.5-17.5); Lymphocytes # (auto) 1.2 10 ^3/uL (0.4-5.4); Lymphocytes % (auto) 21.9 % (10.0-50.0); Mean Corpuscular Hemoglobin 30.9 pg (28.0-32.0); Mean Corpuscular Hgb Conc. 32.8 g/dL (32.0-36.0); Mean Corpuscular Volume 94.2 fL (80.0-100.0); Monocytes # (auto) 0.3 10 ^3/uL (0-1.3); Monocytes % (auto) 5.4 % (0.0-12.0); Neutrophils # (auto) 3.8 10 ^3/uL (1.6-8.6); Neutrophils % (auto) 71.1 % (37.0-80.0); Nucleated Red Blood Cells % 0.5 %; Platelet Count (auto) 327 10^3/uL (140-450); Red Blood Cells 5.43 10^6/uL (4.5-5.90); Red Cell Distribution Width 14.1 % (11.8-14.3); White Blood Cell 5.3 10^3/uL (4.4-10.8)
[2020-03-08 04:27] LABS: Albumin 3.2 g/dL (3.4-5.0); Potassium 3.8 mmol/L (3.5-5.1)
[2020-03-08 04:32] LABS: BUN/Creatinine Ratio 42.9; Bilirubin, Total 0.7 mg/dL (0.2-1.0); Total Protein 6.4 g/dL (6.4-8.2)
--- NOTE | 2020-03-08 06:10 | NUR ---
RT AT BEDSIDE TITRATED HIGH FLOW UP TO 55L / 80%. 02 SAT - 90%. WILL CONTINUE TO MONITOR.
[2020-03-08] MEDS: IPRATROPIUM-ALBUTEROL 20mCg/100mCg INHALER IN SCH ×2 (06:22→22:50)
[2020-03-08] MEDS: InsuLIN REG 1unit/0.01ml Soln (100units/ml) SC SCH ×4 (07:00→21:41)
[2020-03-08] MEDS: ACCU-CHEK COMFORT CURVE STRIP VI SCH ×4 (07:00→21:41)
--- NOTE | 2020-03-08 07:31 | NUR ---
END OF SHIFT REPORT GIVEN TO DAY SHIFT RN. CARE ENDORSED.
--- NOTE | 2020-03-08 08:00 | NUR ---
OPENING Report received from Hema GRAJEDA RN. Care initiated and initial assessment complete.
--- NOTE | 2020-03-08 09:50 | NUR ---
RODRIGUEZ BEDSIDE MD at bedside for evaluation and treatment. Further orders received and carried out.
[2020-03-08] MEDS: ALBUMIN 25% 100 ML IV SCH (10:00)
[2020-03-08] MEDS: METOPROLOL TARTRATE 25 MG TAB PO SCH ×2 (10:00→21:18)
[2020-03-08] MEDS: DIGOXIN 0.125 MG TAB PO SCH (10:00)
--- NOTE | 2020-03-08 10:20 | NUR ---
PATIENT DESATURATED Patient attempting to use bedside commode, became out of breath. Assisted patient back to lying position and walked him through deep breathing until saturation went back to 90%.
[2020-03-08] MEDS: cefTRIAXone 1GM/50ML D5W 50 ML IV SCH (10:22)
[2020-03-08] MEDS: DexAMETHasone SOD PHOS 4 MG/1ML SDV INJ IV SCH (10:22)
[2020-03-08] MEDS: BUMETANIDE 2.5mg/10ml (0.25 mg/ml) INJ IV SCH (10:22)
[2020-03-08] MEDS: ENOXAPARIN SOD 100 MG/1 ML SYRINGE SC SCH ×2 (10:23→21:18)
[2020-03-08] MEDS: AZITHROMYCIN 250 MG TAB PO SCH (10:23)
--- NOTE | 2020-03-08 18:23 | NUR ---
Respiratory note: RECEIVED PT ON HFNC UNIT. UNIT CONNECTED TO RED OUTLET AND O2 SOURCE. ALARMS ARE SET AND AUDIBLE. AT BEDSIDE FOR HFNC ASSESSMENT WITH FULL PPE, NO CHANGES MADE BS ARE DIMINISHED CLEAR T/O. WILL CONTINUE TO MONITOR.
--- NOTE | 2020-03-08 22:50 | NUR ---
Respiratory note: AT BEDSIDE FOR MED NEB TX. Addendum: 03/08/20 at 2308 by Erin Menard, RT PLEASE DISREGARD MED NEB TX NO AEROSOLIZED TX GIVEN, MDI TX WAS GIVEN.
[2020-03-09] VITALS (12 sets, daily range): BP systolic 108–149; BP diastolic 58–96
[2020-03-09 04:34] LABS: Basophils # (auto) 0 10 ^3/uL (0-0.2); Basophils % (auto) 0.3 % (0.0-2.0); Eosinophils # (auto) 0 10 ^3/uL (0-0.8); Eosinophils % (auto) 0.5 % (0.0-7.0); Hematocrit 49.9 % (41.0-53.0); Hemoglobin 16.7 g/dL (13.5-17.5); Lymphocytes # (auto) 1.4 10 ^3/uL (0.4-5.4); Lymphocytes % (auto) 22.6 % (10.0-50.0); Mean Corpuscular Hemoglobin 31.5 pg (28.0-32.0); Mean Corpuscular Hgb Conc. 33.4 g/dL (32.0-36.0); Mean Corpuscular Volume 94.1 fL (80.0-100.0); Monocytes # (auto) 0.4 10 ^3/uL (0-1.3); Monocytes % (auto) 6.8 % (0.0-12.0); Neutrophils # (auto) 4.4 10 ^3/uL (1.6-8.6); Neutrophils % (auto) 69.8 % (37.0-80.0); Nucleated Red Blood Cells % 0.3 %; Platelet Count (auto) 335 10^3/uL (140-450); Red Cell Distribution Width 14.5 % (11.8-14.3); White Blood Cell 6.2 10^3/uL (4.4-10.8)
[2020-03-09 04:52] LABS: Potassium 3.5 mmol/L (3.5-5.1)
[2020-03-09 05:01] LABS: Albumin 3.7 g/dL (3.4-5.0); BUN/Creatinine Ratio 52.7; Calcium 9.1 mg/dL (8.5-10.1); Total Protein 6.7 g/dL (6.4-8.2)
[2020-03-09] MEDS: InsuLIN REG 1unit/0.01ml Soln (100units/ml) SC SCH ×4 (07:00→20:43)
[2020-03-09] MEDS: ACCU-CHEK COMFORT CURVE STRIP VI SCH ×4 (07:02→20:44)
[2020-03-09] MEDS: IPRATROPIUM-ALBUTEROL 20mCg/100mCg INHALER IN SCH ×3 (07:10→22:40)
[2020-03-09] MEDS: ENOXAPARIN SOD 100 MG/1 ML SYRINGE SC SCH ×2 (09:07→20:44)
[2020-03-09] MEDS: cefTRIAXone 1GM/50ML D5W 50 ML IV SCH (09:07)
[2020-03-09] MEDS: AZITHROMYCIN 250 MG TAB PO SCH (09:08)
[2020-03-09] MEDS: DIGOXIN 0.125 MG TAB PO SCH (09:08)
[2020-03-09] MEDS: DexAMETHasone SOD PHOS 4 MG/1ML SDV INJ IV SCH (09:09)
[2020-03-09] MEDS: BUMETANIDE 2.5mg/10ml (0.25 mg/ml) INJ IV SCH (09:09)
[2020-03-09] MEDS: ALBUMIN 25% 100 ML IV SCH (09:10)
[2020-03-09] MEDS: METOPROLOL TARTRATE 25 MG TAB PO SCH ×2 (10:00→20:43)
--- NOTE | 2020-03-09 10:00 | NUR ---
MD ROUNDS SEE NEW ORDERS.
--- NOTE | 2020-03-09 12:30 | NUR ---
IV insertion IV access obtained, via clean sterile technique by inserting 22 gauge catheter at Left forearm after 1 attempt(s). IV secured properly. No trauma to site. Patient tolerated procedure well.
--- NOTE | 2020-03-09 12:45 | NUR ---
IV removal IV DC'd to left hand with sterile technique, catheter fully intact. Pressure dressing applied to site. Patient tolerated procedure well. Discharged with aftercare instructions per MD. NOTE:
--- NOTE | 2020-03-09 13:00 | NUR ---
ACTIVITY PATIENT ASSISTED OOB TO CHAIR USING STANDBY ASSISTANCE. PT NOTED TO BE STEADY DURING PIVOTING. PATIENT SAT UP IN CHAIR FOR APPROX 1 1/2HRS. PT TOLERATED WELL, POX REMAINED 93-94%.
--- NOTE | 2020-03-09 14:00 | NUR ---
PRONE PATIENT TURNED PRONE IN BED WITH PILLOWS FOR COMFORT. RESTING COMFORTABLY WITH POX REMAINING 93%.
--- NOTE | 2020-03-09 19:30 | NUR ---
PT AAOX4, MOVES ALL EXTREMITIES, AFEBRILE. AFIB ON THE MONITOR. HR 85. NO C/O PAIN AT THIS TIME. PT ON HF NC POX91%, NO CURRENT DISTRESS, SOB W/EXERTION. POC DISCUSSED, PT STATED UNDERSTANDING. SAFETY PRECAUTIONS IN PLACE. WILL CONTINUE TO MONITOR.
[2020-03-10] VITALS (12 sets, daily range): BP systolic 101–143; BP diastolic 61–90
--- NOTE | 2020-03-10 02:00 | NUR ---
PT TOLERATING HF NC, PT SLEEPING AROUSABLE BY NAME, NO CURRENT DISTRESS. SAFETY PRECAUTIONS IN PLACE. WILL CONTINUE TO MONITOR.
[2020-03-10 04:52] LABS: Basophils # (auto) 0 10 ^3/uL (0-0.2); Basophils % (auto) 0.3 % (0.0-2.0); Eosinophils # (auto) 0 10 ^3/uL (0-0.8); Eosinophils % (auto) 0.3 % (0.0-7.0); Hematocrit 49.6 % (41.0-53.0); Hemoglobin 16.3 g/dL (13.5-17.5); Lymphocytes # (auto) 1.3 10 ^3/uL (0.4-5.4); Lymphocytes % (auto) 18.6 % (10.0-50.0); Mean Corpuscular Hemoglobin 31.3 pg (28.0-32.0); Mean Corpuscular Hgb Conc. 32.9 g/dL (32.0-36.0); Monocytes # (auto) 0.5 10 ^3/uL (0-1.3); Monocytes % (auto) 7.8 % (0.0-12.0); Neutrophils # (auto) 5.1 10 ^3/uL (1.6-8.6); Nucleated Red Blood Cells % 0.1 %; Platelet Count (auto) 270 10^3/uL (140-450); Red Blood Cells 5.22 10^6/uL (4.5-5.90); Red Cell Distribution Width 14.5 % (11.8-14.3)
[2020-03-10 05:31] LABS: BUN/Creatinine Ratio 53.4; Calcium 9.4 mg/dL (8.5-10.1); Potassium 4.1 mmol/L (3.5-5.1)
[2020-03-10] MEDS: IPRATROPIUM-ALBUTEROL 20mCg/100mCg INHALER IN SCH ×3 (06:25→22:00)
--- NOTE | 2020-03-10 06:30 | NUR ---
PT AWAKE ALERT, STATES SLEPT VERY WELL LAST NIGHT, ALL NEEDS MET AT THIS TIME. SAFETY PRECAUTIONS IN PLACE. WILL CONTINUE TO MONITOR.
[2020-03-10] MEDS: InsuLIN REG 1unit/0.01ml Soln (100units/ml) SC SCH ×4 (07:00→22:00)
[2020-03-10] MEDS: ACCU-CHEK COMFORT CURVE STRIP VI SCH ×4 (07:22→22:00)
[2020-03-10] MEDS: ENOXAPARIN SOD 100 MG/1 ML SYRINGE SC SCH ×2 (08:33→22:05)
[2020-03-10] MEDS: BUMETANIDE 2.5mg/10ml (0.25 mg/ml) INJ IV SCH (08:33)
[2020-03-10] MEDS: AZITHROMYCIN 250 MG TAB PO SCH (08:33)
[2020-03-10] MEDS: DIGOXIN 0.125 MG TAB PO SCH (08:33)
[2020-03-10] MEDS: cefTRIAXone 1GM/50ML D5W 50 ML IV SCH (08:34)
[2020-03-10] MEDS: METOPROLOL TARTRATE 25 MG TAB PO SCH ×2 (08:34→22:04)
--- NOTE | 2020-03-10 09:00 | NUR ---
ACTIVITY PATIENT OOB TRANSFERRED TO BED FROM CHAIR USING STANDBY ASSISTANCE. PATIENT TOLERATED WELL. POX DECREASED TO 88% BUT BACK UP TO 92-93% ONCE RESTED.
[2020-03-10 09:36] LABS: Albumin 3.9 g/dL (3.4-5.0); Bilirubin, Direct 0.3 mg/dL (0-0.2)
[2020-03-10 09:38] LABS: Bilirubin, Total 0.9 mg/dL (0.2-1.0); Total Protein 6.7 g/dL (6.4-8.2)
--- NOTE | 2020-03-10 09:51 | NUR ---
DIPLOMATIC INTERPRETER/TRANSLATOR UPDATED ON PATIENTS STATUS. NEW ORDERS IN PLACE FOR SECOND TRANSFUSION OF PLASMA. Addendum: 03/10/20 at 1118 by Emilie Morillo RN OBTAINED APPROVAL BY DR. LOVE FOR SECOND UNIT TO BE TRANSFERRED TO PATIENT.
--- NOTE | 2020-03-10 09:52 | NUR ---
MD ROUNDS MADE DR. MURGUIA MAKING ROUNDS, SPOKE TO YEAST CAKE CUTTER RE: PLAN OF CARE.
--- NOTE | 2020-03-10 10:22 | NUR ---
Nutrition Followup Notes Wt: 139.4 kg Pt`s COVID +ve in isolation unable to talk to pt. pt is currently on CCHO 45 gm diet with adequate PO of 89% avg x 3 days per RN doc. pt with no distress noted Est Energy needs: 2396-1060 kcals (17-20 kcal/kgBW), Est Protein needs: 103-113 gms/day (1.0-1.1 gm/kgBW). Will continue to monitor and reassess prn. LABS: BUN 39H, Alb 3.9 WNL GI: Pt has no BM reported per RN doc BS: 19, low risk. Refer to wound assessment report for full details. PES: Partially resolved: 1) Altered nutrition related lab values aeb hyperglycemia, hypocalcemia, severe hypoalbuminemia r/t current medical condition 2) Obesity aeb 142% IBW and BMI of 33.5 kg/m2 r/t energy intake in excess of energy needs Rec: 1) 1) Continue to closely monitor pt PO intake to meet at least 75% of meals. 2) Suggest a CCHO 60g diet. 3) Continue current plan of care
--- NOTE | 2020-03-10 11:18 | NUR ---
PLASMA FOLLOW UP DRIVER EDUCATION INSTRUCTOR CALLED FOR ORDER OF PLASMA TO BE TRANSFUSED. NEW TYPE ANS SCREEN TO BE TAKEN AND RESULTED. WHEN T/S PROCESSED, DRIVER EDUCATION INSTRUCTOR TO BE NOTIFIED.
[2020-03-10] MEDS: DexAMETHasone SOD PHOS 4 MG/1ML SDV INJ IV SCH (11:59)
[2020-03-10] MEDS: ALBUMIN 25% 100 ML IV SCH (11:59)
--- NOTE | 2020-03-10 15:09 | NUR ---
ACTIVITY PATIENT BACK IN BED USING STANDBY ASSISTANCE. STEADY GAIT NOTED DURING TRANSFER. PATIENT SITTING AT EDGE OF BED EATING JELLO AT THIS TIME. ACTIVITY TOLERATED WELL. POX REMAINED 90-91%.
--- NOTE | 2020-03-10 15:30 | NUR ---
PLASMA FOLLOW UP WATER SUPPLY ENGINEER AWARE OF T/S COMPLETED.
--- NOTE | 2020-03-10 23:40 | NUR ---
Pt stable at this time. No S/S of distress. Will continue to monitor.
[2020-03-11] VITALS (15 sets, daily range): BP systolic 106–151; BP diastolic 59–86
[2020-03-11 03:40] LABS: Basophils # (auto) 0.1 10 ^3/uL (0-0.2); Basophils % (auto) 0.7 % (0.0-2.0); Eosinophils # (auto) 0 10 ^3/uL (0-0.8); Eosinophils % (auto) 0.4 % (0.0-7.0); Hematocrit 51.6 % (41.0-53.0); Hemoglobin 16.3 g/dL (13.5-17.5); Lymphocytes # (auto) 1.7 10 ^3/uL (0.4-5.4); Lymphocytes % (auto) 22.4 % (10.0-50.0); Mean Corpuscular Hemoglobin 30.7 pg (28.0-32.0); Mean Corpuscular Hgb Conc. 31.7 g/dL (32.0-36.0); Mean Corpuscular Volume 96.9 fL (80.0-100.0); Monocytes # (auto) 0.6 10 ^3/uL (0-1.3); Monocytes % (auto) 7.5 % (0.0-12.0); Neutrophils # (auto) 5.1 10 ^3/uL (1.6-8.6); Nucleated Red Blood Cells % 0.1 %; Platelet Count (auto) 253 10^3/uL (140-450); Red Blood Cells 5.32 10^6/uL (4.5-5.90); Red Cell Distribution Width 14.6 % (11.8-14.3); White Blood Cell 7.4 10^3/uL (4.4-10.8)
[2020-03-11 03:58] LABS: Albumin 3.8 g/dL (3.4-5.0); CRP High Sensitivity 0.08 mg/dL (< 0.3); Potassium 4.1 mmol/L (3.5-5.1)
[2020-03-11 04:01] LABS: BUN/Creatinine Ratio 52.1; Bilirubin, Total 0.9 mg/dL (0.2-1.0); Total Protein 6.6 g/dL (6.4-8.2)
--- NOTE | 2020-03-11 06:20 | NUR ---
Blood bank called and said they now have the conv plasma. Now thawing and will take approx 40 min. Pt stable at this time.
--- NOTE | 2020-03-11 06:21 | NUR ---
Held accucheck. Pt is usually normal or low side of normal. Will consult MD for possible update in orders.
[2020-03-11] MEDS: InsuLIN REG 1unit/0.01ml Soln (100units/ml) SC SCH ×4 (06:22→22:00)
[2020-03-11] MEDS: ACCU-CHEK COMFORT CURVE STRIP VI SCH ×4 (06:22→22:00)
[2020-03-11] MEDS: IPRATROPIUM-ALBUTEROL 20mCg/100mCg INHALER IN SCH ×3 (06:57→23:04)
--- NOTE | 2020-03-11 07:41 | NUR ---
Pt remains stable. No S/S of distress. Report given to AM shift, care endorsed.
--- NOTE | 2020-03-11 08:30 | NUR ---
OOB TO CHAIR PATIENT HELPING WITH ASSISTANCE FROM EDIE BENITEZ, TO GET OOB INTO CHAIR. PATIENT TOLERATED WELL. WILL CONTINUE TO MONITOR VS. CONTINUE CARE. PATIENT REMAINS ON HIGH FLOW O2 AT 35L AT 70% FIO2. CONTINUE CARE.
[2020-03-11] MEDS: ALBUMIN 25% 100 ML IV SCH (09:06)
[2020-03-11] MEDS: BUMETANIDE 2.5mg/10ml (0.25 mg/ml) INJ IV SCH (09:18)
[2020-03-11] MEDS: ENOXAPARIN SOD 100 MG/1 ML SYRINGE SC SCH ×2 (09:18→22:44)
[2020-03-11] MEDS: DexAMETHasone SOD PHOS 4 MG/1ML SDV INJ IV SCH (09:18)
[2020-03-11] MEDS: DIGOXIN 0.125 MG TAB PO SCH (09:18)
[2020-03-11] MEDS: METOPROLOL TARTRATE 25 MG TAB PO SCH ×2 (09:18→22:43)
[2020-03-11] MEDS: AZITHROMYCIN 250 MG TAB PO SCH (09:18)
[2020-03-11] MEDS: cefTRIAXone 1GM/50ML D5W 50 ML IV SCH (09:39)
--- NOTE | 2020-03-11 10:30 | NUR ---
DR. MURGUIA AT BEDSIDE: ORDERS MD UPDATED ON PT'S CURRENT STATUS, LABS AND POC FOR TODAY. ORDERS TO BE GIVEN. CONTINUE CARE.
--- NOTE | 2020-03-11 10:50 | NUR ---
PLASMA TRANSFUSION STARTED AT THIS TIME SEE TRANSFUSION FLOW SHEET FOR FURTHER INFORMATION. PATIENT TOLERATING WELL. WILL CONTINUE TO MONITOR.
--- NOTE | 2020-03-11 11:53 | NUR ---
OXYGENATION FIO2 ON HIGH FLOW DECREASED TO 60% CURRENTLY AT 35L OF OXYGEN.
[2020-03-12] VITALS (11 sets, daily range): BP systolic 113–152; BP diastolic 59–90
[2020-03-12] MEDS: ACCU-CHEK COMFORT CURVE STRIP VI SCH ×4 (06:09→20:37)
[2020-03-12] MEDS: InsuLIN REG 1unit/0.01ml Soln (100units/ml) SC SCH (06:10)
--- NOTE | 2020-03-12 06:10 | NUR ---
Pt states NO HX of DM. Accucheck held since pt is usually WNL or lower.
[2020-03-12] MEDS: IPRATROPIUM-ALBUTEROL 20mCg/100mCg INHALER IN SCH ×3 (06:23→22:10)
--- NOTE | 2020-03-12 06:27 | NUR ---
Pt remained stable this shift. Still had some EKG pauses during sleep periods and was in an afib and periodic sandra rhythm. HR as low as 38 noted for brief periods of time. No S/S of distress and was asymptomatic during the severely sandra intervals.
--- NOTE | 2020-03-12 06:46 | NUR ---
Pauses noted in EKG. Has happened periodically this shift and last night. Asymptomatic. Pt resting watching TV.
[2020-03-12 08:42] LABS: Basophils # (auto) 0 10 ^3/uL (0-0.2); Basophils % (auto) 0.3 % (0.0-2.0); Eosinophils # (auto) 0 10 ^3/uL (0-0.8); Eosinophils % (auto) 0.4 % (0.0-7.0); Hematocrit 49.6 % (41.0-53.0); Hemoglobin 16.3 g/dL (13.5-17.5); Lymphocytes # (auto) 2.3 10 ^3/uL (0.4-5.4); Lymphocytes % (auto) 31.6 % (10.0-50.0); Mean Corpuscular Hemoglobin 31.2 pg (28.0-32.0); Mean Corpuscular Hgb Conc. 32.8 g/dL (32.0-36.0); Mean Corpuscular Volume 95.3 fL (80.0-100.0); Monocytes # (auto) 0.6 10 ^3/uL (0-1.3); Monocytes % (auto) 8.1 % (0.0-12.0); Neutrophils # (auto) 4.3 10 ^3/uL (1.6-8.6); Neutrophils % (auto) 59.6 % (37.0-80.0); Nucleated Red Blood Cells % 0.1 %; Platelet Count (auto) 191 10^3/uL (140-450); Red Blood Cells 5.21 10^6/uL (4.5-5.90); Red Cell Distribution Width 14.5 % (11.8-14.3); White Blood Cell 7.3 10^3/uL (4.4-10.8)
[2020-03-12 09:14] LABS: BUN/Creatinine Ratio 50.7
--- NOTE | 2020-03-12 10:15 | NUR ---
ACTIVITY Patient out of bed and sitting in chair, Stand by assist provided. Patient tolerated activity well.
[2020-03-12] MEDS: BUMETANIDE 2.5mg/10ml (0.25 mg/ml) INJ IV SCH (10:29)
[2020-03-12] MEDS: DexAMETHasone SOD PHOS 4 MG/1ML SDV INJ IV SCH (10:30)
[2020-03-12] MEDS: DIGOXIN 0.125 MG TAB PO SCH (10:30)
[2020-03-12] MEDS: cefTRIAXone 1GM/50ML D5W 50 ML IV SCH (10:30)
[2020-03-12] MEDS: METOPROLOL TARTRATE 25 MG TAB PO SCH ×2 (10:31→22:02)
[2020-03-12] MEDS: ENOXAPARIN SOD 100 MG/1 ML SYRINGE SC SCH (10:31)
[2020-03-12] MEDS: AZITHROMYCIN 250 MG TAB PO SCH (10:31)
--- NOTE | 2020-03-12 22:24 | NUR ---
Pt stable, alert and oriented. Linens changed, pt bathed, and night time snack given. Pt also instructed on proper IS use and rational. Pt verbalized understanding and stated no one had explained the proper use. No S/S of distress although when pt got up to urinate and go back to bed from sitting in chair, MT called and stated he had a few runs of RVR with his current Afib and Aflutter and HR was in 160's. Once pt got in bed his rhythm went back to baseline with HR 80's. Asymptomatic when having the RVR and change in HR. Pt now in bed and resting. Will continue to monitor.
[2020-03-13] VITALS (9 sets, daily range): BP systolic 108–134; BP diastolic 70–90
--- NOTE | 2020-03-13 00:30 | NUR ---
Pt tested again for covid, sent. Pt tolerated well. Will continue to monitor.
[2020-03-13 03:44] LABS: Basophils # (auto) 0 10 ^3/uL (0-0.2); Basophils % (auto) 0.5 % (0.0-2.0); Eosinophils # (auto) 0 10 ^3/uL (0-0.8); Eosinophils % (auto) 0.3 % (0.0-7.0); Hematocrit 50.2 % (41.0-53.0); Hemoglobin 16.4 g/dL (13.5-17.5); Lymphocytes # (auto) 1.7 10 ^3/uL (0.4-5.4); Lymphocytes % (auto) 22.8 % (10.0-50.0); Mean Corpuscular Hgb Conc. 32.7 g/dL (32.0-36.0); Mean Corpuscular Volume 94.9 fL (80.0-100.0); Monocytes # (auto) 0.5 10 ^3/uL (0-1.3); Monocytes % (auto) 6.8 % (0.0-12.0); Neutrophils # (auto) 5.3 10 ^3/uL (1.6-8.6); Neutrophils % (auto) 69.6 % (37.0-80.0); Nucleated Red Blood Cells % 0.2 %; Platelet Count (auto) 179 10^3/uL (140-450); Red Blood Cells 5.29 10^6/uL (4.5-5.90); Red Cell Distribution Width 14.3 % (11.8-14.3); White Blood Cell 7.6 10^3/uL (4.4-10.8)
[2020-03-13 04:03] LABS: Calcium 9.2 mg/dL (8.5-10.1); Potassium 3.9 mmol/L (3.5-5.1)
[2020-03-13 04:05] LABS: BUN/Creatinine Ratio 51.4
[2020-03-13] MEDS: IPRATROPIUM-ALBUTEROL 20mCg/100mCg INHALER IN SCH ×3 (06:00→21:53)
[2020-03-13] MEDS: ACCU-CHEK COMFORT CURVE STRIP VI SCH (07:00)
--- NOTE | 2020-03-13 07:35 | NUR ---
Pt remains stable. Report given, care endorsed.
--- NOTE | 2020-03-13 08:45 | NUR ---
MD Dr. Reno at bedside updated on patient condition with new orders to titrate patients FIO2 to 40% and titrate accordingly.
--- NOTE | 2020-03-13 08:48 | NUR ---
RESPIRATORY RT Babs paged to notify her that Dr. Reno would like to speak to her.
--- NOTE | 2020-03-13 08:50 | NUR ---
RESPIRATORY RT Babs called this RN back aware that Dr. Reno is here at the nurses station waiting to speak to her.
--- NOTE | 2020-03-13 09:10 | NUR ---
RESPIRATORY RT Babs at bedside placed patient on Oximizer at 10 liters sating 91%, per keep o2 sats above 88%. Patient tolerating well.
--- NOTE | 2020-03-13 09:10 | NUR ---
TOOK PT OFF HIGH FLOW AND PLACED ON OXYMIZER 10LPM. PT OUT OF BED AND SITTING IN CHAIR, TOLERATING CHANGES WELL. HR 97, RR 16, SPO2 91%. DR Smiley FRIAS OUTSIDE PT'S DOOR, ORDERED SPO2 GOAL 88% OR GREATER. PT DENIES SOB, NO S/S OF DISTRESS NOTED. NOTIFIED RN OF CHANGES.
[2020-03-13] MEDS: ENOXAPARIN SOD 40 MG/0.4 ML SYRINGE SC SCH (10:00)
[2020-03-13] MEDS: DIGOXIN 0.125 MG TAB PO SCH (10:00)
[2020-03-13] MEDS: BUMETANIDE 2.5mg/10ml (0.25 mg/ml) INJ IV SCH (10:00)
[2020-03-13] MEDS: DexAMETHasone SOD PHOS 4 MG/1ML SDV INJ IV SCH (10:00)
[2020-03-13] MEDS: METOPROLOL TARTRATE 25 MG TAB PO SCH ×2 (10:00→21:54)
--- NOTE | 2020-03-13 10:25 | NUR ---
MD Dr. Erickson at bedside updated on patient condition with no new orders, MD spoke to patient regarding plan of care.
--- NOTE | 2020-03-13 12:57 | NUR ---
Nutrition Followup Notes Wt: 103.7 kg Pt`s COVID +ve in isolation unable to talk to pt. pt is currently on CCHO 45 gm diet with adequate PO of 92% avg x 2 days per RN doc. pt with no distress noted Est Energy needs: 2487-1402 kcals (17-20 kcal/kgBW), Est Protein needs: 103-113 gms/day (1.0-1.1 gm/kgBW). Will continue to monitor and reassess prn. LABS: BUN 57H, Alb 3.8WNL GI: Pt had 1 BM reported 03/13 per RN doc BS: 19, low risk. Refer to wound assessment report for full details. PES: Partially resolved: 1) Altered nutrition related lab values aeb hyperglycemia, hypocalcemia, severe hypoalbuminemia r/t current medical condition 2) Obesity aeb 142% IBW and BMI of 33.5 kg/m2 r/t energy intake in excess of energy needs Rec: 1) 1) Continue to closely monitor pt PO intake to meet at least 75% of meals. 2) Suggest a CCHO 60g diet. 3) Continue current plan of care
--- NOTE | 2020-03-13 14:40 | NUR ---
Pt remains off high flow, tolerating well. Titrated oxymizer to 9lpm, SPO2 93%. MDI tx administered via holding chamber, no adverse reactions noted. Pt out of bed sitting in chair, denies any SOB at this time, no s/s of distress.
--- NOTE | 2020-03-13 14:40 | NUR ---
RESPIRATORY RT Babs at bedside and decreased patients oximizer to 9 liters
--- NOTE | 2020-03-13 22:25 | NUR ---
RT NOTE: RN GAVE COMBIVENT INHALER TX WITHOUT ADVERSE REACTIONS. PT ON 9LPM OXYMIZER SPO2 93%. PT ALERT WITH NO DISTRESS.
[2020-03-14] VITALS: BP 139/76
--- NOTE | 2020-03-14 02:49 | NUR ---
Pt maintaining pulse ox 82-86%. Tuned up O2 to 12LPM, pt took awhile to come up but now at 94%. Will continue to monitor and titrate back down in and hour.
[2020-03-14 03:48] LABS: Anion Gap 7 (5-15); BUN/Creatinine Ratio 48.1; Blood Urea Nitrogen 37 mg/dL (7-18); Calcium 9.2 mg/dL (8.5-10.1); Carbon Dioxide 19 mmol/L (21-32); Chloride 108 mmol/L (98-107); GFR African American 130 mL/min; GFR Non-African American 107 mL/min; Glucose 62 mg/dL (74-106); Potassium 4.3 mmol/L (3.5-5.1); Sodium 134 mmol/L (136-145)
[2020-03-14 04:00] VITALS: BP 136/65
[2020-03-14 05:53] LABS: Basophils # (auto) 0 10 ^3/uL (0-0.2); Basophils % (auto) 0.9 % (0.0-2.0); Eosinophils # (auto) 0.1 10 ^3/uL (0-0.8); Eosinophils % (auto) 1.8 % (0.0-7.0); Hematocrit 53.1 % (41.0-53.0); Hemoglobin 17.1 g/dL (13.5-17.5); Lymphocytes # (auto) 2.2 10 ^3/uL (0.4-5.4); Lymphocytes % (auto) 43.9 % (10.0-50.0); Mean Corpuscular Hemoglobin 30.9 pg (28.0-32.0); Mean Corpuscular Hgb Conc. 32.3 g/dL (32.0-36.0); Mean Corpuscular Volume 95.6 fL (80.0-100.0); Monocytes # (auto) 0.5 10 ^3/uL (0-1.3); Monocytes % (auto) 8.9 % (0.0-12.0); Neutrophils # (auto) 2.3 10 ^3/uL (1.6-8.6); Neutrophils % (auto) 44.5 % (37.0-80.0); Nucleated Red Blood Cells % 0.2 %; Platelet Count (auto) 132 10^3/uL (140-450); Red Blood Cells 5.55 10^6/uL (4.5-5.90); Red Cell Distribution Width 14.1 % (11.8-14.3); White Blood Cell 5.1 10^3/uL (4.4-10.8)
[2020-03-14] MEDS: IPRATROPIUM-ALBUTEROL 20mCg/100mCg INHALER IN SCH ×3 (06:13→22:00)
--- NOTE | 2020-03-14 07:01 | NUR ---
Pt remained stable this shift. Informed RT of oxymizer turned up to 12LPM at 0200. RT at bedside at 0600. Pt up in chair at bedside. Report given, care endorsed.
[2020-03-14 08:00] VITALS: BP 135/97
[2020-03-14] MEDS: DexAMETHasone SOD PHOS 4 MG/1ML SDV INJ IV SCH (09:54)
[2020-03-14] MEDS: DIGOXIN 0.125 MG TAB PO SCH (09:55)
[2020-03-14] MEDS: ENOXAPARIN SOD 40 MG/0.4 ML SYRINGE SC SCH (09:56)
[2020-03-14] MEDS: BUMETANIDE 2.5mg/10ml (0.25 mg/ml) INJ IV SCH (09:58)
[2020-03-14] MEDS: METOPROLOL TARTRATE 25 MG TAB PO SCH ×2 (09:59→22:14)
[2020-03-14 11:35] VITALS: BP 113/72
[2020-03-14 15:40] VITALS: BP 135/99
--- NOTE | 2020-03-14 19:20 | NUR ---
OPENING SHIFT RECEIVED REPORT FROM DAY SHIFT RN. ASSUMED CARE OF PATIENT. PATIENT SITTING IN CHAIR WATCHING TV WITH NO SIGNS OR SYMPTOMS OF SOB, PAIN OR DISTRESS. CURRENTLY ON 9L 02 OXYMIZER, 02 SAT - 95%. RIGHT FOREARM IV - CLEAN/DRY/INTACT. UPDATED PATIENT ON PLAN OF CARE. CALL LIGHT WITHIN REACH. WILL CONTINUE TO MONITOR.
[2020-03-14 20:00] VITALS: BP 140/89
[2020-03-15] VITALS (7 sets, daily range): BP systolic 116–147; BP diastolic 57–92
[2020-03-15 05:29] LABS: Basophils # (auto) 0.1 10 ^3/uL (0-0.2); Eosinophils # (auto) 0 10 ^3/uL (0-0.8); Eosinophils % (auto) 0.4 % (0.0-7.0); Hematocrit 54.2 % (41.0-53.0); Hemoglobin 17.7 g/dL (13.5-17.5); Lymphocytes # (auto) 1.6 10 ^3/uL (0.4-5.4); Mean Corpuscular Hgb Conc. 32.7 g/dL (32.0-36.0); Monocytes # (auto) 0.4 10 ^3/uL (0-1.3); Monocytes % (auto) 4.9 % (0.0-12.0); Neutrophils # (auto) 6.1 10 ^3/uL (1.6-8.6); Neutrophils % (auto) 73.7 % (37.0-80.0); Nucleated Red Blood Cells % 0.1 %; Platelet Count (auto) 139 10^3/uL (140-450); Red Blood Cells 5.71 10^6/uL (4.5-5.90); Red Cell Distribution Width 14.2 % (11.8-14.3); White Blood Cell 8.3 10^3/uL (4.4-10.8)
--- NOTE | 2020-03-15 05:45 | NUR ---
MORNING CARE CCT PROVIDED CLEAN WASH CLOTHS AT BEDSIDE. PARTIAL LINEN CHANGE. PATIENT REFUSED GOWN CHANGE AT THIS TIME.
[2020-03-15 05:46] LABS: BUN/Creatinine Ratio 37.2; Calcium 9.4 mg/dL (8.5-10.1); Potassium 4.1 mmol/L (3.5-5.1)
[2020-03-15] MEDS: IPRATROPIUM-ALBUTEROL 20mCg/100mCg INHALER IN SCH ×3 (06:24→22:00)
--- NOTE | 2020-03-15 07:07 | NUR ---
END OF SHIFT REPORT GIVEN TO DAY SHIFT RN. CARE ENDORSED.
--- NOTE | 2020-03-15 07:45 | NUR ---
OPENING SHIFT NOTE Received report from [facility] RN, Hema. Assumed care of patient. Received patient sitting up in chair, connected to bedside monitor. Patient with no s/s distress noted. Patient is A&Ox4, denies pain. Patient is on Oxymizer at 7L with O2sats 92%. Goal per Dr Lion is to maintain sats >88%. Patient is ambulating to and from restroom by self, patient will occasionally get ST 140s, but return to baseline once back in bed/chair. Patient with PIV to right FA #20, that is patent. Bed in lowest position, rails x2 up and call light/phone within reach. Updated on plan of care. Will continue to monitor q1hr/PRN. Addendum: 03/15/20 at 1051 by WINNIE MASSEY RN Noted entered by Winnie Massey RN.
--- NOTE | 2020-03-15 09:00 | NUR ---
MD Dr Erickson on unit to see patient. No new orders received. Addendum: 03/15/20 at 1051 by WINNIE MASSEY RN Noted entered by Winnie Massey RN
[2020-03-15] MEDS: BUMETANIDE 2.5mg/10ml (0.25 mg/ml) INJ IV SCH (09:17)
[2020-03-15] MEDS: DIGOXIN 0.125 MG TAB PO SCH (09:17)
[2020-03-15] MEDS: DexAMETHasone SOD PHOS 4 MG/1ML SDV INJ IV SCH (09:17)
[2020-03-15] MEDS: ENOXAPARIN SOD 40 MG/0.4 ML SYRINGE SC SCH (09:18)
[2020-03-15] MEDS: METOPROLOL TARTRATE 25 MG TAB PO SCH ×2 (09:18→21:53)
--- NOTE | 2020-03-15 10:14 | NUR ---
PT DOWNGRADED TO TELE. REPORT GIVEN TO YAEL WARNER.
--- NOTE | 2020-03-15 10:35 | NUR ---
Patient to 248B via wheel chair escorted by CCT. Winston
--- NOTE | 2020-03-15 10:41 | NUR ---
patient arrived from [place]. Patient on 6L, alert and orientedx4, patient patient ambulatory. Patient oriented to room, call light and unit. Patient verbalized understanding.
--- NOTE | 2020-03-15 19:20 | NUR ---
Opening Shift Note Received report from Marybel CONLEY. Assumed care of patient, awake and alert, sitting on the chair. No S/S of distress/SOB or pain. Instructed on POC and to call for assist PRN, will continue to monitor for changes Q1hr and PRN.
[2020-03-16] VITALS (8 sets, daily range): BP systolic 104–167; BP diastolic 66–89
[2020-03-16 06:38] LABS: Basophils # (auto) 0 10 ^3/uL (0-0.2); Basophils % (auto) 0.4 % (0.0-2.0); Eosinophils # (auto) 0 10 ^3/uL (0-0.8); Eosinophils % (auto) 0.2 % (0.0-7.0); Hematocrit 50.5 % (41.0-53.0); Hemoglobin 16.4 g/dL (13.5-17.5); Lymphocytes # (auto) 1.8 10 ^3/uL (0.4-5.4); Lymphocytes % (auto) 22.7 % (10.0-50.0); Mean Corpuscular Hemoglobin 31.3 pg (28.0-32.0); Mean Corpuscular Hgb Conc. 32.5 g/dL (32.0-36.0); Mean Corpuscular Volume 96.2 fL (80.0-100.0); Monocytes # (auto) 0.6 10 ^3/uL (0-1.3); Monocytes % (auto) 7.2 % (0.0-12.0); Neutrophils # (auto) 5.5 10 ^3/uL (1.6-8.6); Neutrophils % (auto) 69.5 % (37.0-80.0); Nucleated Red Blood Cells % 0.2 %; Platelet Count (auto) 100 10^3/uL (140-450); Red Blood Cells 5.25 10^6/uL (4.5-5.90); Red Cell Distribution Width 14.2 % (11.8-14.3); White Blood Cell 7.9 10^3/uL (4.4-10.8)
[2020-03-16 07:04] LABS: Calcium 8.9 mg/dL (8.5-10.1); Potassium 4.2 mmol/L (3.5-5.1)
[2020-03-16 07:07] LABS: BUN/Creatinine Ratio 43.2
--- NOTE | 2020-03-16 08:00 | NUR ---
ASSESSMENT NOTE PT IS ALERT ORIENTED X4, SITTING ON A CHAIR AT BED SIDE, EATING BREAKFAST, OXYGEN OXYMIZER 6 L , NO DISTRESS NOTED, DENIES COUGH, CHEST PAIN, OR SHORTNESS OF BREATH, ABLE TO VERBALIS HIS DEMANDS, INDEPENDENT ON HIS CARE, PAIN 0/10, CALL LIGHT WITHIN REACH
[2020-03-16] MEDS: IPRATROPIUM-ALBUTEROL 20mCg/100mCg INHALER IN SCH ×3 (08:07→22:40)
--- NOTE | 2020-03-16 08:07 | NUR ---
RT NOTE: PT FOUND ON 6L OXYMIZER AND TITRATED TO 5L. WILL CONTINUE TO ATTEMPT TO TITRATE.
--- NOTE | 2020-03-16 09:00 | NUR ---
DR MORAN CALLED TO FOLLOW UP ON PT, PT ON 6 L , SAID TO KEEP TAPER PT DOWN
[2020-03-16] MEDS: DexAMETHasone SOD PHOS 4 MG/1ML SDV INJ IV SCH (09:30)
[2020-03-16] MEDS: BUMETANIDE 2.5mg/10ml (0.25 mg/ml) INJ IV SCH (09:30)
[2020-03-16] MEDS: ENOXAPARIN SOD 40 MG/0.4 ML SYRINGE SC SCH (09:31)
[2020-03-16] MEDS: DIGOXIN 0.125 MG TAB PO SCH (09:31)
[2020-03-16] MEDS: METOPROLOL TARTRATE 25 MG TAB PO SCH ×2 (09:31→22:24)
--- NOTE | 2020-03-16 10:20 | NUR ---
DR CHAMBERS CALLED, MADE AWARE THAT PT ON 5 L OXYMIZER, OTHER BLACK PT IS FEELING WELL, LOOKING FORWARD TO GO HOME, DR CHAMBERS SAID THAT HE WILL COME LATER, AND WILL PLAN TO SEND PT HOME TOMORROW WITH HOME OXYGEN
--- NOTE | 2020-03-16 14:43 | NUR ---
Nutrition Followup Notes Wt: 103.7 kg Pt`s COVID +ve in isolation unable to talk to pt. pt is currently on CCHO 45 gm diet with adequate PO of 92% avg x 2 days per RN doc. pt with no distress noted Est Energy needs: 6331-0337 kcals (17-20 kcal/kgBW), Est Protein needs: 103-113 gms/day (1.0-1.1 gm/kgBW). Will continue to monitor and reassess prn. LABS: BUN 35 H, GI: Pt had 1 BM reported 03/13 per RN doc BS: 21, low risk. Refer to wound assessment report for full details. PES: Partially resolved: 1) Altered nutrition related lab values aeb hyperglycemia, hypocalcemia, severe hypoalbuminemia r/t current medical condition 2) Obesity aeb 142% IBW and BMI of 33.5 kg/m2 r/t energy intake in excess of energy needs Rec: 1) 1) Continue to closely monitor pt PO intake to meet at least 75% of meals. 2) Continue current plan of care
--- NOTE | 2020-03-16 18:48 | NUR ---
PT CONTINUE STABLE, CONTINUE MONITORING
--- NOTE | 2020-03-16 19:15 | NUR ---
Opening Shift Note Received report from Yanet CONLEY. Assumed care of patient, awake and alert, sitting in the chair. No S/S of distress/SOB or pain. Instructed on POC and to call for assist PRN, will continue to monitor for changes Q1hr and PRN.
[2020-03-17 05:00] VITALS: BP 129/90
--- NOTE | 2020-03-17 07:15 | NUR ---
Opening Shift Note Assumed care of patient after receiving report. Patient is awake and alert, with no S/S of distress/SOB or pain. Patient on 4L of oxygen via Oxymizer. Call light within reach, bed in lowest position x2 side rails, HOB semi Fowlers. Instructed on POC and to call for assist PRN, will continue to monitor for changes Q1hr and PRN.
[2020-03-17] MEDS: IPRATROPIUM-ALBUTEROL 20mCg/100mCg INHALER IN SCH ×2 (07:26→14:54)
[2020-03-17 08:04] LABS: BUN/Creatinine Ratio 44.7; Calcium 9.1 mg/dL (8.5-10.1); Potassium 4.2 mmol/L (3.5-5.1)
[2020-03-17 08:47] VITALS: BP 140/75
[2020-03-17] MEDS: ENOXAPARIN SOD 40 MG/0.4 ML SYRINGE SC SCH ×2 (10:00→10:53)
[2020-03-17 10:34] LABS: Basophils # (auto) 0.1 10 ^3/uL (0-0.2); Basophils % (auto) 0.8 % (0.0-2.0); Eosinophils # (auto) 0 10 ^3/uL (0-0.8); Eosinophils % (auto) 0.3 % (0.0-7.0); Hematocrit 49.5 % (41.0-53.0); Hemoglobin 16.4 g/dL (13.5-17.5); Lymphocytes # (auto) 2.2 10 ^3/uL (0.4-5.4); Lymphocytes % (auto) 26.7 % (10.0-50.0); Mean Corpuscular Hemoglobin 31.5 pg (28.0-32.0); Mean Corpuscular Hgb Conc. 33.2 g/dL (32.0-36.0); Mean Corpuscular Volume 95.1 fL (80.0-100.0); Monocytes # (auto) 0.6 10 ^3/uL (0-1.3); Monocytes % (auto) 7.1 % (0.0-12.0); Neutrophils # (auto) 5.3 10 ^3/uL (1.6-8.6); Neutrophils % (auto) 65.1 % (37.0-80.0); Nucleated Red Blood Cells % 0.2 %; Platelet Count (auto) 116 10^3/uL (140-450); Red Cell Distribution Width 14.5 % (11.8-14.3); White Blood Cell 8.1 10^3/uL (4.4-10.8)
[2020-03-17] MEDS: BUMETANIDE 2.5mg/10ml (0.25 mg/ml) INJ IV SCH (10:43)
[2020-03-17] MEDS: METOPROLOL TARTRATE 25 MG TAB PO SCH (10:44)
[2020-03-17] MEDS: DIGOXIN 0.125 MG TAB PO SCH (10:44)
[2020-03-17] MEDS ORDERED: DexAMETHasone SOD PHOS 10MG/1ML VIAL INJ IV SCH (10:48)
[2020-03-17 12:30] VITALS: BP 113/74
--- NOTE | 2020-03-17 13:37 | NUR ---
D/c planning Per consult for home oxygen at 4l/min. Faxed clinical information to [facility] who will assist with the DME. Per Rayna with [facility], SG will deliver portable oxygen to front lobby between 15:00-16:00 and concentrate oxygen to patient home. Per Rayna they will schedule an appointment for patient to be re-assess and will contact patient with appointment. YAEL Smallwood was informed.
[2020-03-17 14:40] VITALS: BP 113/74
--- NOTE | 2020-03-17 17:40 | NUR ---
Discharge instructions given as ordered. Encourage to follow up with PMD as instructed. All questions and concerns addressed. Patient verbalized understanding. IV removed with catheter intact, pressure dressing applied. Telemetry unit returned to ICU. Patient taken to vehicle via wheelchair with all personal belongings, accompanied by staff. No distress noted at time of departure.
== END 2020-03-17 17:40 | disposition home or self-care (01) | DRG 177 ==
LOC: ER 17:52 → EDBD 17:52 → TELE 17:53 → ICU WEST 03-01 20:01 → DOU IN ICU 03-02 17:10 → TELE-DOU 03-15 10:35 → TELE-EAST 03-15 10:59
PROVIDERS: ADMIT Internal Medicine; ATTEND Internal Medicine
PROC: 5A09357 Assistance with Respiratory Ventilation, Less than 24 Consecutive Hours, Continuous Positive Airway Pressure (ICD-10-PCS; principal; 2020-02-29)
PROC: 5A09357 Assistance with Respiratory Ventilation, Less than 24 Consecutive Hours, Continuous Positive Airway Pressure (ICD-10-PCS; 2020-03-01)
PROC: 30233K1 Transfusion of Nonautologous Frozen Plasma into Peripheral Vein, Percutaneous Approach (ICD-10-PCS; 2020-03-03)
DX: U07.1 COVID-19 (principal); J12.89 Other viral pneumonia; J96.01 Acute respiratory failure with hypoxia; I48.20 Chronic atrial fibrillation, unspecified; I50.9 Heart failure, unspecified; E11.9 Type 2 diabetes mellitus without complications; K76.0 Fatty (change of) liver, not elsewhere classified; E66.01 Morbid (severe) obesity due to excess calories; J43.9 Emphysema, unspecified; I11.0 Hypertensive heart disease with heart failure; R79.1 Abnormal coagulation profile; Z87.891 Personal history of nicotine dependence; Z88.2 Allergy status to sulfonamides; Z79.84 Long term (current) use of oral hypoglycemic drugs; Z68.31 Body mass index [BMI] 31.0-31.9, adult
CPT/HCPCS: 36415; 36600; 71045; 71275; 80048; 80053; 80076; 80162; 82728; 82805; 82962; 83036; 83615; 83735; 83880; 84484; 85025; 85379; 86141; 86850; 86900; 86901; 87081; 93005; 93306; 93970; 94640; 94660; 99291; G0378; J0696; J1100; J1815; J3480; P9047